=== PATIENT | female | born 1945 | race Caucasian/White ===

== ENCOUNTER 2016-11-26 12:13 | Emergency (ER) | payer MEDICARE ==
[~2016-11-26 12:13] MED LIST: AMBIEN CR12.5 MG/BO; CELEBREX200 MG; COUMADIN1 MG; COUMADIN2 MG; CRESTOR10 MG; DIOVAN HCT 160/1 TA; FINACEA50 GM; FISH OIL1 CAP; GLUCOSAMIN1 TAB.CHEW; MULTIVITAMIN1 CAP; NORCO 5/325 TAB1 TAB PO; NORVASC10 MG; POTASSIUM99 MG; PRILOSEC40 MG; VERAPAMIL HCL240 M; VITAMIN C; ZETIA10 MG; ZOLOFT100 MG; ZYRTEC; [UNRECOGNIZED DRUG - OTHER]; [UNRECOGNIZED DRUG - REMARK]
[2016-11-26] MEDS ORDERED: ALLERGY RELIEF1 EAC2 PO (12:51)
[2016-11-26] MEDS ORDERED: NORVASC10 M2 PO (12:51)
[2016-11-26] MEDS ORDERED: BYSTOLIC5 M1 PO (12:51)
[2016-11-26] MEDS ORDERED: KLONOPIN1 M1 PO (12:52)
[2016-11-26] MEDS ORDERED: ROSUVASTATIN CA10 MG PO (12:52)
[2016-11-26] MEDS ORDERED: OMEPRAZOLE40 M2 PO (12:53)
[2016-11-26] MEDS ORDERED: GAVILAX17 G2 PO (12:53)
[2016-11-26] MEDS ORDERED: PRIMIDONE50 M1 PO (12:53)
[2016-11-26] MEDS ORDERED: ACID CONTROL150 M2 PO (12:53)
[2016-11-26] MEDS ORDERED: VALSARTAN-HCTZ1 EA12 PO (12:54)
[2016-11-26] MEDS ORDERED: ULTRAM50 M1 PO (12:54)
[2016-11-26] MEDS ORDERED: ZOLPIDEM TART12.5 M2 PO (12:54)
[2016-11-26] MEDS ORDERED: SERTRALINE HCL100 M5 PO (12:54)
[2016-11-26 13:26] LABS: URINE APPEARANCE CLEAR; URINE BILIRUBIN NEGATIVE (NEG); URINE BLOOD MODERATE (NEG); URINE COLOR PALE YELLOW; URINE GLUCOSE (UA) NEGATIVE (NEG); URINE KETONE NEGATIVE (NEG); URINE LEUKOCYTE ESTERASE POSITIVE (NEG); URINE NITRITE NEGATIVE (NEG); URINE PROTEIN MODERATE (NEG)
[2016-11-26 13:45] LABS: URINE RBC 0-4 /[HPF] (0-5); URINE WBC 0-1 /[HPF] (0-5)
[2016-11-26 13:46] LABS: URINE EPITHELIAL CELLS 0-2 /[HPF] (0-10)
[2016-11-26] MEDS ORDERED: NORCO 5-325 TA1 EACH PO (15:02)
[2016-11-26] MEDS ORDERED: CYCLOBENZAPRINE5 M1 PO (15:23)
== END 2016-11-26 15:39 ==
LOC: EDMED 12:13
PROVIDERS: Physician Assistant
DX: M54.5 Low back pain (principal); I25.10 Atherosclerotic heart disease of native coronary artery without angina pectoris; M19.90 Unspecified osteoarthritis, unspecified site; E78.5 Hyperlipidemia, unspecified; Z98.890 Other specified postprocedural states
CPT/HCPCS: J2270